=== PATIENT | male | born 1975 | race African-American/Black ===

== ENCOUNTER 2018-10-29 22:36 | Emergency (ER) | payer SELFPAY ==
[2018-10-29] MEDS ORDERED: FENTANYL CITR 100 MCG/2 ML ONE (23:03)
[2018-10-29] MEDS ORDERED: NA CHLORIDE 0.9% 1,000 ML ONE (23:03)
[2018-10-29] MEDS ORDERED: ONDANSETRON 4 MG/2 ML VIAL ONE (23:03)
[2018-10-29 23:14] LABS: Absolute Monocytes 0.6 K/uL (0.1-1.3); Absolute Neutrophil 3.3 K/uL (1.8-8.0); Basophils % 0.8 % (0-1.3); Eosinophils % 0.8 % (0-4.4); Hematocrit 40.5 % (39.6-49.0); Lymphocytes % 33.5 % (15.3-44.8); MPV 7.8 fL (7.6-11.3); RBC Red Blood Cell Count 4.24 M/uL (4.33-5.43)
--- NOTE | 2018-10-29 23:35 | RAD REPORT ---
EXAM DESCRIPTION: RAD - Forearm Left - 10/29/2018 11:28 pm CLINICAL HISTORY: Left forearm pain status post injury FINDINGS: Impacted, comminuted, intra-articular fracture involves the distal radius with mild displa cement of fracture fragments. No dislocation is seen
--- NOTE | 2018-10-29 23:36 | RAD REPORT ---
EXAM DESCRIPTION: RAD - Pelvis - 10/29/2018 11:28 pm CLINICAL HISTORY: Pelvic pain status post injury FINDINGS: No fracture or dislocation is seen. If the patient continues to have symptoms to suggest an occult fracture then CT or MRI would recommen ded
--- NOTE | 2018-10-29 23:38 | RAD REPORT ---
EXAM DESCRIPTION: [place] Single View10/29/2018 11:28 pm CLINICAL HISTORY: Chest pain COMPARISON: none FINDINGS: The left lateral costophrenic sulcus is not included in the field of view and is not eval uated. The visualized lungs appear clear of acute infiltrate. The heart is normal size IMPRESSION: No acute abnormalities displayed
[2018-10-30 00:01] LABS: Protime INR 0.9
[2018-10-30 00:13] LABS: BUN Blood Urea Nitrogen 15 mg/dL (7-18); Bicarbonate 23 mmol/L (21-32); Glucose Level 102 mg/dL (74-106); Potassium 3.6 mmol/L (3.5-5.1); Sodium Level 143 mmol/L (136-145); Troponin I < 0.02 ng/mL (0.0-0.045)
--- NOTE | 2018-10-30 02:25 | EDPHYS ---
Physician Documentation [facility] Name: Ty Wells Age: 43 yrs Sex: Male : 1975 Arrival Date: 10/29/2018 Time: 22:41 Bed 3 Private MD: ED Physician Duncan Reese HPI: 10/29 22:55 This 43 yrs old Black Male presents to ER via EMS with complaints of Fall Injury. cp 22:55 Details of fall: The patient fell from a height, from a ladder, approximately 10 feet, cp and struck a concrete surface. Onset: The symptoms/episode began/occurred just prior to arrival. Associated injuries: The patient sustained injury to the abdomen, specifically the right upper quadrant and right lower quadrant, tenderness, left wrist. 22:55 Patient reports LOC. cp Historical: - Allergies: 23:01 Morphine; fc - Home Meds: 23:01 Omeprazole Oral [Active]; amlodipine oral [Active]; fc - PMHx: 23:01 Hyperlipidemia; GERD; Hypertension; Sleep Apnea; Depression; fc - Immunization history: Last tetanus immunization: unknown. - Social history:: Smoking status: Patient uses tobacco products, denies chronic smoking, but will smoke occasionally, Patient uses alcohol, on a daily basis. - Ebola Screening: : Patient negative for fever greater than or equal to 101.5 degrees Fahrenheit, and additional compatible Ebola Virus Disease symptoms Patient denies exposure to infectious person Patient denies travel to an Ebola-affected area in the 21 days before illness onset. ROS: 23:00 Constitutional: Negative for body aches, chills, fever, poor PO intake. cp 23:00 Eyes: Negative for injury, pain, redness, and discharge. cp 23:00 ENT: Negative for drainage from ear(s), sore throat, difficulty swallowing, difficulty handling secretions. 23:00 Cardiovascular: Negative for chest pain, palpitations. 23:00 Respiratory: Negative for shortness of breath, wheezing. 23:00 Abdomen/GI: Negative for vomiting, diarrhea, constipation. 23:00 Back: Negative for decreased range of motion. 23:00 MS/extremity: Positive for injury or acute deformity, decreased range of motion, pain, tenderness, of the left wrist, Negative for paresthesias. 23:00 Neuro: Positive for loss of consciousness, Negative for altered mental status. 23:00 All other systems are negative. Exam: 22:55 ECG was reviewed by the Attending Physician. cp 23:10 Constitutional: The patient appears in no acute distress, alert, awake, cp non-diaphoretic, non-toxic, well developed, well nourished, uncomfortable. 23:10 Head/Face: Normocephalic, atraumatic. Eyes: Pupils equal round and reactive to light, cp extra-ocular motions intact. Lids and lashes normal. Conjunctiva and sclera are non-icteric and not injected. Cornea within normal limits. Periorbital areas with no swelling, redness, or edema. ENT: Nares patent. No nasal discharge, no septal abnormalities noted. Tympanic membranes are normal and external auditory canals are clear. Oropharynx with no redness, swelling, or masses, exudates, or evidence of obstruction, uvula midline. Mucous membranes moist. 23:10 Neck: C-spine: C-collar placed in ED. 23:10 Chest/axilla: Inspection: normal, Palpation: crepitus, is not appreciated, tenderness, that is moderate, of the right lower lateral rib area. 23:10 Cardiovascular: Rate: normal, Rhythm: regular, Pulses: Pulses are 2+ in right radial artery, right dorsalis pedis artery, left radial artery and left dorsalis pedis artery. Edema: is not appreciated, JVD: is not appreciated. 23:10 Respiratory: the patient does not display signs of respiratory distress, Respirations: normal, no use of accessory muscles, no retractions, no splinting, no tachypnea, labored breathing, is not present, Breath sounds: are clear throughout, no decreased breath sounds, no stridor, no wheezing. 23:10 Abdomen/GI: Inspection: abdomen appears normal, Bowel sounds: active, all quadrants, Palpation: soft, in all quadrants, mild abdominal tenderness, in the right upper quadrant and right lower quadrant, rebound tenderness, is not appreciated, involuntary guarding, is not appreciated. 23:10 Back: vertebral tenderness, is not appreciated. 23:10 Musculoskeletal/extremity: Extremities: grossly normal except: noted in the left forearm: decreased ROM, deformity, pain, swelling, tenderness. 23:10 Neuro: Orientation: to person, place \T\ time. Mentation: is normal, Motor: moves all fours, strength is normal, Sensation: is normal. Vital Signs: 22:36 BP 133 / 87; Pulse 86; Resp 18; Temp 98.4(O); Pulse Ox 100% on R/A; Weight 95.25 kg fc (R); Height 5 ft. 11 in. (180.34 cm) (R); Pain 10/10; 23:50 BP 120 / 67; Pulse 80; Resp 18; Pulse Ox 99% on R/A; ea 10/30 00:50 BP 127 / 72; Pulse 88; Resp 18; Pulse Ox 99% ; ea 01:50 BP 132 / 60; Pulse 70; Resp 18; Pulse Ox 99% on R/A; ea 02:18 BP 120 / 60; Pulse 68; Resp 18; Temp 98; Pulse Ox 99% ; ea 10/29 22:36 Body Mass Index 29.29 (95.25 kg, 180.34 cm) fc [place] Coma Score: 10/29 22:36 Eye Response: spontaneous(4). Verbal Response: oriented(5). Motor Response: obeys fc commands(6). Total: 15. 23:50 Eye Response: spontaneous(4). Verbal Response: oriented(5). Motor Response: obeys ea commands(6). Total: 15. 10/30 00:50 Eye Response: spontaneous(4). Verbal Response: oriented(5). Motor Response: obeys ea commands(6). Total: 15. 01:50 Eye Response: spontaneous(4). Verbal Response: oriented(5). Motor Response: obeys ea commands(6). Total: 15. 02:18 Eye Response: spontaneous(4). Verbal Response: oriented(5). Motor Response: obeys ea commands(6). Total: 15. Trauma Score (Adult): 10/29 22:36 Eye Response: spontaneous(1); Verbal Response: oriented(1); Motor Response: obeys fc commands(2); Systolic BP: > 89 mm Hg(4); Respiratory Rate: 10 to 29 per min(4); Yaya Score: 15; Trauma Score: 12 Procedures: 10/30 02:30 Splinting: Splint applied to left wrist using Orthoglass splint, sling, sugar tong cp type. applied by nurse. Examined by me, post splint application: neurovascular intact, Patient tolerated well. MDM: 10/29 22:47 Patient medically screened. 10/30 02:25 Data reviewed: vital signs, nurses notes, lab test result(s), EKG, radiologic studies, cp CT scan, plain films. 10/29 22:47 Order name: Basic Metabolic Panel; Complete Time: 00:17 cp 10/30 00:17 Interpretation: Normal except: CL 109; CA 7.9. 10/29 22:47 Order name: CBC with Diff; Complete Time: 23:41 10/29 23:41 Interpretation: Normal except: RBC 4.24. 10/29 22:47 Order name: Creatinine for Radiology; Complete Time: 00:17 10/29 22:47 Order name: PT-INR; Complete Time: 00:17 10/29 22:47 Order name: Ptt, Activated; Complete Time: 00:17 10/29 22:47 Order name: CT Traumagram (Head C Spine CAP W Con) 10/29 22:47 Order name: XRAY Pelvis; Complete Time: 23:41 10/29 23:41 Interpretation: Report reviewed. 10/29 22:47 Order name: XRAY Chest (1 view); Complete Time: 23:41 10/29 23:42 Interpretation: Report review. 10/29 22:47 Order name: XRAY Forearm LEFT; Complete Time: 23:41 10/29 23:44 Interpretation: Report reviewed. 10/29 22:47 Order name: Troponin I; Complete Time: 00:17 10/29 22:47 Order name: Labs collected and sent; Complete Time: 00:02 10/29 22:47 Order name: EKG; Complete Time: 22:48 10/29 22:47 Order name: EKG - Nurse/Tech; Complete Time: 22:52 10/29 23:46 Order name: Splint - Sugar Tong - Forearm: left; Complete Time: 00:36 cp EC/24 22:55 Rate is 82 beats/min. Rhythm is regular. ME interval is normal. QRS interval is normal. cp QT interval is normal. Interpreted by me. Reviewed by me. Administered Medications: 22:52 Drug: Zofran 4 mg Route: IVP; Site: right antecubital; ea 23:15 Follow up: Response: No adverse reaction ea 22:53 Drug: NS 0.9% 1000 ml Route: IV; Rate: 1 bolus; Site: right antecubital; ea 22:55 Drug: fentaNYL (PF) 25 mcg Route: IVP; Site: right antecubital; ea 23:15 Follow up: Response: No adverse reaction; Pain is decreased ea 23:25 Drug: fentaNYL (PF) 25 mcg Route: IVP; Site: right antecubital; ea 10/30 00:01 Drug: fentaNYL (PF) 25 mcg Route: IVP; Site: right antecubital; ea Disposition: 06:36 Co-signature as Attending Physician, Duncan Reese MD. rn Disposition: 10/30/18 02:25 Discharged to Home. Impression: Fall on and from ladder, Displaced comminuted fracturedistal left radius. - Condition is Stable. - Discharge Instructions: Head Injury, Adult, Wrist Fracture Treated With Immobilization. - Prescriptions for Ibuprofen 800 mg Oral Tablet - take 1 tablet by ORAL route every 8 hours As needed take with food; 30 tablet. Tylenol- Codeine #3 300-30 mg Oral Tablet - take 2 tablets by ORAL route every 6 hours As needed; 20 tablet. - Medication Reconciliation Form, Thank You Letter, Antibiotic Education, Prescription Opioid Use form. - Follow up: Carroll Alexis MD; When: 2 - 3 days; Reason: left distal radius fracture. - Problem is new. - Symptoms have improved. Signatures: Dispatcher [employer] EDMS Claudette Keller RN RN fc Nieto, Roman, MD MD rn Page, Corey, PA PA cp Antunez, Elena, RN RN ea Corrections: (The following items were deleted from the chart) 00:17 00:17 Normal except: CL 109. cp cp 02:52 02:25 10/30/2018 02:25 Discharged to Home. Impression: Fall on and from ladder; ea Displaced comminuted fracturedistal left radius. Condition is Stable. Forms are Medication Reconciliation Form, Thank You Letter, Antibiotic Education, Prescription Opioid Use. Follow up: Carroll Alexis; When: 2 - 3 days; Reason: left distal radius fracture. Problem is new. Symptoms have improved. cp
--- NOTE | 2018-10-30 02:25 | ER ---
Nurse's Notes [facility] Name: Ty Wells Age: 43 yrs Sex: Male : 1975 Arrival Date: 10/29/2018 Time: 22:41 Bed 3 Private MD: Diagnosis: Fall on and from ladder;Displaced comminuted fracturedistal left radius Presentation: 10/29 22:36 Presenting complaint: Patient states: that he was working on a ladder and fell approx fc 10 feet. Hit the ground. Possible LOC. Pain to left wrist, left wrist and right hip. Care prior to arrival: Splint applied. Mechanism of Injury: Fall approx 10 feet. Trauma event details: Injury occurred in the [facility], Injury occurred: at home. Injury occurred: October 29, 2018. 22:36 Acuity: BRISSA 2 22:36 Method Of Arrival: EMS: [facility] 22:36 Transition of care: patient was not received from another setting of care. Onset of symptoms was October 29, 2018. Risk Assessment: Do you want to hurt yourself or someone else? Patient reports no desire to harm self or others. Initial Sepsis Screen: Does the patient meet any 2 criteria? No. Patient's initial sepsis screen is negative. Does the patient have a suspected source of infection? No. Patient's initial sepsis screen is negative. Trauma Activation: Alert Physician: ED Physician; Name: Kevyn; Notified At: 22:36; Arrived At: 22:36 Physician: General Surgeon; Name: ; Notified At: 22:36; Arrived At: Physician: Radiology; Name: Daria Brownlee Brittany, aracelli; Notified At: 22:36; Arrived At: 22:37 Physician: Respiratory; Name: Checo; Notified At: 22:36; Arrived At: 22:39 Physician: Lab; Name: ; Notified At: 22:36; Arrived At: Historical: - Allergies: 23:01 Morphine; fc - Home Meds: 23:01 Omeprazole Oral [Active]; amlodipine oral [Active]; fc - PMHx: 23:01 Hyperlipidemia; GERD; Hypertension; Sleep Apnea; Depression; fc - Immunization history: Last tetanus immunization: unknown. - Social history:: Smoking status: Patient uses tobacco products, denies chronic smoking, but will smoke occasionally, Patient uses alcohol, on a daily basis. - Ebola Screening: : Patient negative for fever greater than or equal to 101.5 degrees Fahrenheit, and additional compatible Ebola Virus Disease symptoms Patient denies exposure to infectious person Patient denies travel to an Ebola-affected area in the 21 days before illness onset. Screenin:36 Abuse screen: Denies threats or abuse. Tuberculosis screening: No symptoms or risk fc factors identified. 22:36 Nutritional screening: No deficits noted. Fall Risk None identified. fc Primary Survey: 22:41 NO uncontrolled hemorrhage observed. A: The patient is alert. Airway: patent. ea Breathing/Chest: Respiratory pattern: regular, Respiratory effort: spontaneous, unlabored, Breath sounds: clear, bilaterally. Circulation: Skin color: pink, Skin temperature: warm. Disability Alert. Exposure/Environment: Obvious injury(ies) are noted at this time: complaining of pain to right side and left arm. Arm splinted by EMS, pt tolerating well. 23:50 Reassessment Airway Airway Patent Breathing/Chest Respiratory pattern Regular ea Respiratory effort Spontaneous Unlabored Circulation Color [place] Temperature Warm Disability Alert. Assessment: 22:36 General: Appears uncomfortable, Behavior is calm, cooperative. Pain: Complains of pain ea in left arm, right flank and right side of abdomen. Neuro: Level of Consciousness is awake, alert, obeys commands, Oriented to person, place, time, situation. Cardiovascular: Patient's skin is warm and dry. Respiratory: Airway is patent Respiratory effort is even, unlabored, Respiratory pattern is regular, symmetrical. GI: Abdomen is non-distended. :. Derm: Skin is pink, warm \T\ dry. Injury Description: Deformity sustained to left wrist. 23:50 Reassessment: Patient and/or family updated on plan of care and expected duration. Pain ea level reassessed. Patient is alert, oriented x 3, equal unlabored respirations, skin warm/dry/pink. 10/30 00:20 Reassessment: Patient removed C-collar at this time; Provider notified. lp1 01:30 Reassessment: Patient and/or family updated on plan of care and expected duration. Pain ea level reassessed. Patient is alert, oriented x 3, equal unlabored respirations, skin warm/dry/pink. 02:33 Reassessment: Patient and/or family updated on plan of care and expected duration. Pain ea level reassessed. Patient is alert, oriented x 3, equal unlabored respirations, skin warm/dry/pink. Discharge instruction given to patient, verbalized the understanding of instruction. Patient states feeling better. Vital Signs: 10/29 22:36 BP 133 / 87; Pulse 86; Resp 18; Temp 98.4(O); Pulse Ox 100% on R/A; Weight 95.25 kg fc (R); Height 5 ft. 11 in. (180.34 cm) (R); Pain 10/10; 23:50 BP 120 / 67; Pulse 80; Resp 18; Pulse Ox 99% on R/A; ea 10/30 00:50 BP 127 / 72; Pulse 88; Resp 18; Pulse Ox 99% ; ea 01:50 BP 132 / 60; Pulse 70; Resp 18; Pulse Ox 99% on R/A; ea 02:18 BP 120 / 60; Pulse 68; Resp 18; Temp 98; Pulse Ox 99% ; ea 10/29 22:36 Body Mass Index 29.29 (95.25 kg, 180.34 cm) fc Yaya Coma Score: 10/29 22:36 Eye Response: spontaneous(4). Verbal Response: oriented(5). Motor Response: obeys fc commands(6). Total: 15. 23:50 Eye Response: spontaneous(4). Verbal Response: oriented(5). Motor Response: obeys ea commands(6). Total: 15. 10/30 00:50 Eye Response: spontaneous(4). Verbal Response: oriented(5). Motor Response: obeys ea commands(6). Total: 15. 01:50 Eye Response: spontaneous(4). Verbal Response: oriented(5). Motor Response: obeys ea commands(6). Total: 15. 02:18 Eye Response: spontaneous(4). Verbal Response: oriented(5). Motor Response: obeys ea commands(6). Total: 15. Trauma Score (Adult): 10/29 22:36 Eye Response: spontaneous(1); Verbal Response: oriented(1); Motor Response: obeys fc commands(2); Systolic BP: > 89 mm Hg(4); Respiratory Rate: 10 to 29 per min(4); Krum Score: 15; Trauma Score: 12 ED Course: 22:36 Patient maintains SpO2 saturation greater than 95% on room air. fc 22:36 Patient has correct armband on for positive identification. Placed in gown. Bed in low fc position. Call light in reach. Side rails up X2. 22:36 Arm band placed on Patient placed in an exam room, on a stretcher. fc 22:36 air sampling and monitoring on. Pulse ox on. NIBP on. fc 22:40 Thermoregulation: warm blanket given to patient. fc 22:41 Patient arrived in ED. fc 22:41 Paolo Maria PA is PHCP. cp 22:41 Duncan Reese MD is Attending Physician. cp 22:47 Sharda Mcdonald, COSME is Primary Nurse. ea 22:48 Radiology exam delayed due to lab results not completed at this time. (BUN/Creatinine). nj 22:53 Triage completed. fc 22:53 EKG done, by ED staff, reviewed by Duncan Reese MD. ms 23:28 XRAY Pelvis In Process Unspecified. EDMS 23:28 XRAY Chest (1 view) In Process Unspecified. EDMS 23:28 XRAY Forearm LEFT In Process Unspecified. EDMS 23:49 Radiology exam delayed due to lab results not completed at this time. (BUN/Creatinine). kw1 10/30 00:37 Orthoglass splint: Sugar tong splint applied on left arm. ms 01:18 CT Traumagram (Head C Spine CAP W Con) In Process Unspecified. EDMS 02:23 Carroll Alexis MD is Referral Physician. cp 02:50 No provider procedures requiring assistance completed. IV discontinued, intact, ea bleeding controlled, No redness/swelling at site. Pressure dressing applied. Administered Medications: 10/29 22:52 Drug: Zofran 4 mg Route: IVP; Site: right antecubital; ea 23:15 Follow up: Response: No adverse reaction ea 22:53 Drug: NS 0.9% 1000 ml Route: IV; Rate: 1 bolus; Site: right antecubital; ea 22:55 Drug: fentaNYL (PF) 25 mcg Route: IVP; Site: right antecubital; ea 23:15 Follow up: Response: No adverse reaction; Pain is decreased ea 23:25 Drug: fentaNYL (PF) 25 mcg Route: IVP; Site: right antecubital; ea 10/30 00:01 Drug: fentaNYL (PF) 25 mcg Route: IVP; Site: right antecubital; ea Intake: 02:00 PO: 300ml (Water); IV: 1000ml; Total: 1300ml. ea Outcome: 02:25 Discharge ordered by . martha 02:35 Condition: improved ea 02:35 Discharge instructions given to patient, Instructed on discharge instructions, follow up and referral plans. medication usage, Demonstrated understanding of instructions, follow-up care, medications, Prescriptions given X 1. 02:52 Discharged to home ambulatory. ea 02:52 Patient left the ED. ea Signatures: Dispatcher [employer] EDMS Claudette Keller, RN Indira Awad ms, Laura, RN RN lp1 Paolo Maria PA PA cp Jordan, Nathan nj Antunez, Elena, RN RN ea Wilhelm, Kimberly kw1
--- NOTE | 2018-10-30 08:38 | EKG ---
Test Date: 2018-10-29 Test Time: 22:48:54 Cashier Gambling: MEASUREMENT RESULTS: Intervals: Rate: 82 OR: 188 QRSD: 92 QT: 366 QTc: 427 [place]: P: 74 OR: 188 QRS: 69 T: 33 INTERPRETIVE STATEMENTS: Normal sinus rhythm Nonspecific T wave abnormality Abnormal ECG No previous ECG available for comparison Electronically Signed On 10-30-18 08:36:39 CDT by Remington Castellano
--- NOTE | 2018-10-30 11:12 | RAD REPORT ---
EXAM DESCRIPTION: CT - Head C Spine Cap W Con - 10/30/2018 6:49 am ADDENDUM #1 CLINICAL HISTORY: fall from ladder;Pain COMPARISON: None TECHNIQUE: CT BILAT OR COMBINED PROC NOT MAPPED WAITING ON RADLEX on 10/29/2018 10:47 PM CDT. MIPS re constructions were generated. This exam was performed according to our departmental dose-optimization program, which includes autom ated exposure control, adjustment of the mA and/or kV according to patient size and/or use of iterati ve reconstruction technique. FINDINGS: Vascular: Thoracic aorta is normal in course and caliber without aneurysm or dissection. P ulmonary arteries are adequately opacified without acute or chronic filling defects. Abdominal aorta is normal in course and caliber without aneurysm. Pelvic arteries are patent without aneurysm or occl usion. The heart is normal in size. There is no pericardial effusion. Intrathoracic lymph nodes are not enla rged. There is no pleural effusion, pleural thickening or pneumothorax. Central airways are patent. Lungs a re clear with no consolidation, mass or interstitial lung disease. Abdomen: Liver is fatty in attenuation. There is no biliary dilatation. Gallbladder is decompressed. There is a small hiatal hernia. The pancreas and spleen are normal in appearance. The adrenal glands and kidneys are unremarkable. Abdominal aorta is normal in course and caliber without aneurysm. There is no free air. There is no r etroperitoneal adenopathy. Pelvis: There is no bowel obstruction. Urinary bladder is unremarkable. There is no free fluid. Appen ilda is normal. Skeleton: There are no acute osseous findings. No suspicious bony lesions. IMPRESSION: No posttraumatic findings within the chest, abdomen or pelvis. Electronically signed by: Osbaldo Becker MD 10/30/2018 2:12 AM CDT End of Addendum CLINICAL HISTORY: Fall from ladder;Pain COMPARISON: None. TECHNIQUE: CT of the brain and CT of the cervical spine on 10/29/2018 10:47 PM CDT This exam was performed according to our departmental dose-optimization program, which includes autom ated exposure control, adjustment of the mA and/or kV according to patient size and/or use of iterati ve reconstruction technique. Patient size and/or use of iterative reconstruction technique. FINDINGS: There is no acute hemorrhage, mass effect or midline shift. Kilgore-white differentiation is preserved. There is no hydrocephalus. There is no significant volume loss for age. The calvarium is intact. Orbits and globes are unremarkable. The paranasal sinuses are clear. Mastoid air cells are clear. There is no acute fracture. Alignment is anatomic. Disc spaces are maintained. Vertebral body heights are preserved. Soft tissues are unremarkable. IMPRESSION: No acute intracranial findings. Electronically signed by: Osbaldo Becker MD 10/30/2018 1:33 AM CDT Due to temporary technical issues with the PACS/Fluency reporting system, reports are being signed by the in house radiologist as a courtesy to ensure prompt reporting. The interpreting radiologist is f ully responsible for the content of the report.
== END 2018-10-30 02:52 | disposition home or self-care (01) ==
LOC: ER 22:36
PROC: 2W3DX1Z Immobilization of Left Lower Arm using Splint (ICD-10-PCS; principal; 2018-10-30)
DX: S52.502A Unspecified fracture of the lower end of left radius, initial encounter for closed fracture (principal); W11.XXXA Fall on and from ladder, initial encounter; Y93.9 Activity, unspecified; Y92.9 Unspecified place or not applicable; Z72.0 Tobacco use; Z88.5 Allergy status to narcotic agent; I10 Essential (primary) hypertension; E78.5 Hyperlipidemia, unspecified
CPT/HCPCS: 36415; 70450; 71045; 71260; 72125; 72170; 74177; 80048; 84484; 85025; 85610; 85730; 93005; 96374; 96375; 99285; J2405; J3010; J7030; Q9967